=== PATIENT | male | born 1970 | race Hispanic/Latino ===

== ENCOUNTER 2018-04-25 10:55 | Emergency (ER) | payer OTHER ==
[~2018-04-25] VITALS: Ht 165.1 cm; Wt 95.3 kg
[2018-04-25] MEDS ORDERED: ALBUTEROL SULF 0.083% NEB SOLN 3 ML NEB NEB STA (11:22)
[2018-04-25] MEDS ORDERED: IBUPROFEN 600 MG TAB PO STA (11:22)
[2018-04-25] MEDS ORDERED: IPRATROPIUM BROMIDE 0.02% 2.5 ML NEB NEB STA (11:22)
[2018-04-25] MEDS ORDERED: DEXAMETHASONE SOD PHOS 10 MG/1 ML VIAL INJ ONE (11:30)
[2018-04-25 11:53] LABS: STREPTOCOCCUS GRP A ANTIGEN NEGATIVE (NEGATIVE)
[2018-04-25 11:56] LABS: INFLUENZAE A&B ANTIGEN (RAPID) NEGATIVE (NEGATIVE)
[2018-04-25 12:26] VITALS: BP 150/5
--- NOTE | 2018-04-25 13:23 | Diagnostic Imaging Report ---
EXAMINATION: CHEST 2 VIEWS INDICATION: \S\ORDER PLACED BY \S\[id number] \S\1200 \S\Y COMPARISON: None FINDINGS: PA and lateral views TUBES and LINES: None. LUNGS: Lungs are well inflated. Lungs are clear. There is no evidence of pneumonia or pulmonary edema. PLEURA: No pleural effusion or pneumothorax. HEART AND MEDIASTINUM: The cardiomediastinal silhouette is unremarkable. BONES AND SOFT TISSUES: No acute osseous lesion. Soft tissues are unremarkable. UPPER ABDOMEN: No free air under the diaphragm. IMPRESSION: No acute thoracic abnormality. Signed by: DR. Artis Lai MD on 04/25/2018 1:20 PM
== END 2018-04-25 12:28 | disposition home or self-care (01) ==
LOC: ER 10:55
DX: R50.9 Fever, unspecified (principal); R05 Cough; J40 Bronchitis, not specified as acute or chronic
CPT/HCPCS: 99283; J1100

== ENCOUNTER 2023-03-24 20:36 | Emergency (ER) | payer OTHER ==
[~2023-03-24] VITALS: Ht 165.1 cm; Wt 108.9 kg
[2023-03-24] MEDS ORDERED: IBUPROFEN 600 MG TAB PO STA (21:15)
== END 2023-03-24 23:04 | disposition home or self-care (01) ==
LOC: ER 20:54
DX: S29.012A Strain of muscle and tendon of back wall of thorax, initial encounter (principal); S39.012A Strain of muscle, fascia and tendon of lower back, initial encounter; G89.29 Other chronic pain; V43.52XA Car driver injured in collision with other type car in traffic accident, initial encounter; Y92.488 Other paved roadways as the place of occurrence of the external cause; I10 Essential (primary) hypertension
CPT/HCPCS: 72070; 72100; 99283